=== PATIENT | male | born 1970 | race Caucasian/White ===

== ENCOUNTER 2016-08-31 19:24 | Emergency (ER) | payer BC, OTHER ==
--- NOTE | 2016-08-31 19:30 | UC ---
Laceration HPI - HPI Summary HPI Summary: 46 year old male presents with right upper thigh laceration secondary to a chainsaw. - History Of Current Complaint Stated Complaint: RT LEG LAC Time Seen by Provider: 08/31/16 19:29 Laceration Location: Thigh - right upper Onset/Duration: Sudden Onset - Allergies/Home Medications Allergies/Adverse Reactions: Allergies Allergy/AdvReac Type Severity Reaction Status Date / Time No Known Allergies Allergy Verified 08/31/16 19:30 Home Medications: Home Medications Cetirizine* [ZyrTEC 10 MG TAB*] 10 mg PO DAILY 08/31/16 [History Confirmed 08/31] Review of Systems Constitutional: Negative Skin: Other - right upper thigh laceration Eyes: Negative ENT: Negative Respiratory: Negative Cardiovascular: Negative Gastrointestinal: Negative Genitourinary: Negative Motor: Negative Neurovascular: Negative Musculoskeletal: Negative Neurological: Negative Psychological: Negative All Other Systems Reviewed And Are Negative: Yes Physical Exam Triage Information Reviewed: Yes Eye Exam: Normal ENT Exam: Normal Dental Exam: Normal Neck exam: Normal Neck: Positive: 1 Respiratory Exam: Normal Cardiovascular Exam: Normal Abdominal Exam: Normal Musculoskeletal Exam: Normal Neurological Exam: Normal Psychological Exam: Normal Skin: Positive: Other - right upper thigh laceration Laceration Repair - Laceration Repair 1 Description: Irregular Laceration Size After Repair: Length (cm) - 8 cm to total ( 3 laceration interconnected), Width (mm) - 10, Depth (mm) - 0.25 Contamination/FB Removal: dirt Modified For Repair: No Type Injection: Local Anesthesia Used: 2.0% Lido - 3 ml Irrigation With Pressure Irrigation Device: Yes Closure Material: Sutures - 6 , 4.0 nylon sutures Closure Method: Single Layer Suture Of: Skin Laceration Course/Dx - Differential Dx - Laceration/Wound Provider Diagnoses: RIGHT UPPER THIGH LACERATION Discharge - Discharge Plan Condition: Stable Disposition: HOME Prescriptions: Sulfamethox/Trimethoprim DS* [Bactrim DS 800/160 TAB*] 1 tab PO BID #20 tab Patient Education Materials: Laceration (ED) Referrals: Non Staff,Doctor [Medical Doctor] -
[2016-08-31 19:35] VITALS: BP 128/81
[2016-08-31] MEDS ORDERED: Tetan/Diph/Pertus SYR(Tdap)* 0.5 ML SYR(BOOSTRIX) use SYR IM ONE (19:39)
[2016-08-31] MEDS ORDERED: Lidocaine 1% MPF* 2 ML VIAL INJ ONE (19:40)
[2016-08-31] MEDS ORDERED: Sulfamethox/Trimethoprim DS 800/160* TAB PO ONE (20:41)
== END 2016-08-31 20:58 | disposition home or self-care (01) ==
LOC: UCCORT 19:24
DX: S71.121A Laceration with foreign body, right thigh, initial encounter (principal); W29.3XXA Contact with powered garden and outdoor hand tools and machinery, initial encounter; Y93.9 Activity, unspecified; Y92.9 Unspecified place or not applicable; Y99.9 Unspecified external cause status; Z23 Encounter for immunization
CPT/HCPCS: 12004; 12034; 90471; 90715; 99202; A9270-GY; G0463

== ENCOUNTER 2016-09-10 19:19 | Emergency (ER) | payer OTHER ==
[2016-09-10 19:34] VITALS: BP 133/78
--- NOTE | 2016-09-10 19:34 | UC ---
HPI Wound/Suture Re-check - HPI Summary HPI Summary: Patient had stitches placed 10 days ago on the upper right thigh. some scabbing noted, 6 sutures in placed, edges well approximated, no sign of infection - History Of Current Complaint Stated Complaint: SUTURE REMOVAL Time Seen by Provider: 09/10/16 19:25 Hx Obtained From: Patient Onset/Duration: Sudden Onset, Lasting Days Severity: Mild - Allergies/Home Medications Allergies/Adverse Reactions: Allergies Allergy/AdvReac Type Severity Reaction Status Date / Time No Known Allergies Allergy Verified 08/31/16 19:30 PMH/Surg Hx/FS Hx/Imm Hx Previously Healthy: Yes - Surgical History Surgical History: Yes Surgery Procedure, Year, and Place: right bicep reattachment, appy - Family History Known Family History: Negative: Hypertension - Social History Alcohol Use: Occasionally Substance Use Type: None Smoking Status (MU): Never Smoked Tobacco Review of Systems Constitutional: Negative Skin: Other - laceration Eyes: Negative ENT: Negative Respiratory: Negative Cardiovascular: Negative Gastrointestinal: Negative Genitourinary: Negative Motor: Negative Neurovascular: Negative Musculoskeletal: Negative Neurological: Negative Psychological: Negative All Other Systems Reviewed And Are Negative: Yes Physical Exam Triage Information Reviewed: Yes Appearance: Well-Appearing, No Pain Distress, Well-Nourished Vital Signs Reviewed: Yes Eye Exam: Normal ENT Exam: Normal Dental Exam: Normal Neck exam: Normal Respiratory Exam: Normal Cardiovascular Exam: Normal Abdominal Exam: Normal Bowel Sounds: Positive: Present Musculoskeletal Exam: Normal Neurological Exam: Normal Psychological Exam: Normal Skin: Positive: Other - well healing laceration of the right upper thigh Course/Dx - Course Course Of Treatment: hx obtained, exam performed ,meds reviewed, 6 sutures removed without difficulty. - Differential Dx - Laceration/Wound Differential Diagnoses: Cellulitis, Dehiscence, Hematoma, Joint Infection, Suture Removal, Tenosynovitis, Other Provider Diagnoses: removal of sutures Discharge - Discharge Plan Condition: Stable Disposition: HOME Patient Education Materials: Stitches Removal (ED) Additional Instructions: 1. Keep moisturized and follow up as needed
== END 2016-09-10 19:42 | disposition home or self-care (01) ==
LOC: UCCORT 19:19
DX: Z48.02 Encounter for removal of sutures (principal)
CPT/HCPCS: 99211; G0463